=== PATIENT | female | born 1955 | race Caucasian/White ===

== ENCOUNTER 2017-10-26 22:26 | Observation (INO) | payer SELFPAY ==
--- NOTE | 2017-10-26 22:38 | EDPHY ---
H & P Time Seen by Provider: 10/26/17 22:38 HPI/ROS: HPI CHIEF COMPLAINT: Nausea, vomiting, headache HISTORY OF PRESENT ILLNESS: Patient very pleasant 62-year-old female she is visiting from [place] as her son is graduating, she states around 11:00 a.m. Or close to 12 hr ago she developed nausea with vomiting. She states been vomiting most of the day. No diarrhea. Denies any chest pain or shortness of breath. However she reports that approximately 2 hr ago she got a worsening headache. She drove herself here to the emergency room. Upon arrival to the emergency room she is noted to be diaphoretic, hypertensive , and nauseous with active vomiting. Her main complaint is nausea vomiting. She reports to me that she also has headache is global. Started 2 hr ago. She does not remember for was thunderclap. She does not really describe it. She states her whole head hurts. Past Medical History: Hypertension, diabetes, thyroid disease, obesity Past Surgical History: No recent surgery Social History: History of tobacco use. Does not smoke currently. Denies illicit drugs. Denies alcohol. Lives in [place] here for [facility] graduation. Family History: Noncontributory ROS REVIEW OF SYSTEMS: A comprehensive 10 point review of systems is otherwise negative aside from elements mentioned in the history of present illness. Exam Constitutional diaphoretic, actively vomiting, somewhat distressed, triage nursing summary reviewed, vital signs reviewed, awake/alert. Hypertensive. Eyes normal conjunctivae and sclera, EOMI, PERRLA. Pupils both equal reactive to light. HENT normal inspection, atraumatic, moist mucus membranes, no epistaxis, neck supple/ no meningismus, no raccoon eyes. Respiratory tachypneic, clear to auscultation bilaterally, normal breath sounds , no respiratory distress, no wheezing. Cardiovascular tachycardic, regular rhythm, no murmur, no edema, distal pulses normal. Gastrointestinal soft, non-tender, no rebound, no guarding, normal bowel sounds, no distension, no pulsatile mass. Genitourinary no CVA tenderness. Musculoskeletal no midline vertebral tenderness, full range of motion, no calf swelling, no tenderness of extremities, no meningismus, good pulses, neurovascularly intact. Skin pink, warm, & dry, no rash, skin atraumatic. Neurologic awake, alert and oriented x 3, AAOx3, moves all 4 extremities equally, motor intact, sensory intact, CN II-XII intact, normal cerebellar, normal vision, normal speech. Psychiatric normal mood/affect. Heme/Lymph/Immune no lymphadenopathy. Differential Diagnosis: Includes but is not limited to in a particular order acute IN, aortic dissection, intracranial bleed, stroke, subarachnoid hemorrhage , DKA, dehydration, electrolyte disturbance, altitude illness, infection, sepsis , hypertensive urgency, hypertensive emergency Medical Decision Making: Plan for this patient she is noted to be diaphoretic and somewhat distressed, will medicate her with 1 mg of Dilaudid for acute pain control, 4 mg IV Phenergan for nausea, obtain EKG in full cardiac rehabilitation specialist, rule out acute coronary syndrome, CT scan head without contrast rule out intracranial bleed. Her neurological exam is noted to be normal here however she is diaphoretic nauseous and vomiting complaining of a global headache. Patient noted be very hypertensive here diaphoretic. Will re-evaluate her blood pressure after pain and nausea control. Re-evaluation: EKG interpretation by me on record in [employer] system. Impression time of EKG 2247, this is sinus rhythm rate of [address] elevation. No significant ST depression. No significant T-wave abnormalities. Prolonged QT interval 412. 2259: Patient here in the emergency room diaphoretic nauseous actively vomiting complaining of a headache. Vitals are concerning. Will be very aggressive with her obtain EKG cardiac rehabilitation specialist, troponin, CT scan head without contrast rule out bleed. Will an IN. Re-evaluate. CT scan head without contrast negative for acute bleed. Please see full dictation for details of the CT head. Called to me by Dr. Kenneth Qureshi. 1205: Patient feeling better after IV fluids, IV Phenergan and IV Dilaudid. Patient no acute distress. She is feeling better but still complains of a headache. She seems anxious. I have ordered her 1 mg IV Ativan. Will repeat her EKG. Additionally due to the nausea vomiting and some lower abdominal pain will proceed with CT scan abdomen pelvis with IV contrast. EKG interpretation by me on record in [facility] system. Impression time of EKG this is a repeat EKG 09/20/1999, sinus rhythm rate of [address] elevation no ST depression or significant T-wave abnormalities. 1258: Patient re-evaluated. She is feeling much better after IV Ativan 1 mg. ED x-ray chest one view: Pulmonary nodule present. Please see full dictation. CT scan abdomen pelvis with IV contrast does not show any acute inflammatory process however there is a left distal UVJ stone. 5 x 7 mm. Patient states she has already aware of this stone. Additionally there is a large left adrenal gland. Diverticulosis. Lumbar spinal degeneration. But otherwise no acute inflammatory process. Called to me by Dr. Reeves. 0110: Blood pressure much improved after Ativan 130s over 80s. 0110: I did re-evaluate the patient she is resting, feels much better after IV Ativan. Her CT scan does show L distal left UVJ stone. She did complain of some pain on that side. I question if she was passing the stone causing severe nausea and vomiting. Which was then increasing her blood pressure and giving her headache. Her pain is well controlled now she is much improved in terms of symptoms. Her nausea vomiting is under control. The left lower abdominal pain is improved. Plan will be for admission to the hospital given her presentation of severe hypertension, diaphoresis, and vomiting. There is no evidence she is having intracranial bleed or IN. Source: Patient Constitutional: Initial Vital Signs Temperature (C) 36.3 C 10/26/17 22:30 Heart Rate 100 10/26/17 22:30 Respiratory Rate 30 H 10/26/17 22:30 Blood Pressure 196/140 H 10/26/17 22:30 O2 Sat (%) 100 10/26/17 22:30 O2 Delivery Mode Room Air Allergies/Adverse Reactions: No Known Allergies Allergy (Unverified 10/26/17 22:39) Home Medications: Medication Instructions Recorded Atorvastatin Calcium [Lipitor 40 40 mg PO DAILY 10/27/17 mg (*)] Exenatide Microspheres [Bydureon 2 mg SQ FR 10/27/17 Pen] FLUoxetine HCL [Fluoxetine HCl] 40 mg PO DAILY 10/27/17 [place]/Supplements -Info Only 1 ea PO DAILY 10/27/17 Levothyroxine [Synthroid 137 mcg 137 mcg PO DAILY06 10/27/17 (*)] Multivitamins [Multivitamin (*)] 1 each PO DAILY 10/27/17 [place]-3 Fatty Acids [Fish Oil 1000 1,000 mg PO DAILY 10/27/17 mg (*)] amLODIPine BESYLATE [Norvasc 2.5 2.5 mg PO DAILY 10/27/17 mg (*)] traZODone [traZODONE 50MG (*)] 50 mg PO HS PRN 10/27/17 Medical Decision Making - Data Points Laboratory Results: Laboratory Results 10/26/17 22:50 10/26/17 22:50 Medications Given: Acetaminophen (Tylenol) 650 mg PO Q4HRS PRN PRN Reason: Pain, Mild/Fever, Can Take PO Stop: 04/25/18 01:15 Last Admin: 10/27/17 16:52 Dose: 650 mg Cyclobenzaprine HCl (Flexeril) 10 mg PO HS PRN PRN Reason: Pain Stop: 04/25/18 20:59 Last Admin: 10/27/17 02:46 Dose: 10 mg Enoxaparin Sodium (Lovenox) 40 mg SC DAILY [facility] Stop: 04/25/18 08:59 Last Admin: 10/27/17 07:55 Dose: 40 mg Ceftriaxone Sodium/Dextrose (Rocephin 1 Gm (Premix)) 50 mls @ 100 mls/hr IV DAILY [facility] PRN Reason: Protocol Stop: 11/26/17 08:59 Last Admin: 10/27/17 07:55 Dose: 50 mls Sodium Chloride (Ns) 1,000 mls @ 100 mls/hr IV CONT [facility] Stop: 04/25/18 13:59 Last Admin: 10/28/17 00:05 Dose: 1,000 mls Insulin Human Lispro (Humalog Lispro) 0 unit SC TIDMEAL [facility] PRN Reason: Protocol Stop: 04/25/18 07:59 Last Admin: 10/27/17 18:25 Dose: Not Given Ketorolac Tromethamine (Toradol) 15 mg IVP Q6HRS [facility] Stop: 11/01/17 11:59 Last Admin: 10/28/17 00:05 Dose: 15 mg Ondansetron HCl (Zofran) 4 mg IVP Q4HRS PRN PRN Reason: Nausea/Vomiting, Can't Take PO Stop: 04/25/18 01:15 Last Admin: 10/27/17 16:52 Dose: 4 mg Ondansetron HCl (Zofran Odt) 4 mg PO Q4HRS PRN PRN Reason: Nausea/Vomiting, Use 1st Stop: 04/25/18 01:15 Last Admin: 10/27/17 06:49 Dose: 4 mg Oxycodone HCl (Oxycodone Ir) 5 - 10 mg PO Q4HRS PRN PRN Reason: Pain, Severe Able to Take PO Stop: 11/06/17 02:19 Last Admin: 10/28/17 00:06 Dose: 10 mg Promethazine HCl (Phenergan) 6.25 mg IVP Q6HRS PRN PRN Reason: Nausea/Vomiting, Can't Take PO Stop: 04/25/18 01:21 Last Admin: 10/28/17 01:10 Dose: 6.25 mg Discontinued Medications Hydromorphone HCl (Dilaudid) 1 mg IVP EDNOW ONE Stop: 10/26/17 22:45 Last Admin: 10/26/17 23:01 Dose: 1 mg Sodium Chloride (Ns) 1,000 mls @ 0 mls/hr IV EDNOW ONE; Wide Open PRN Reason: Protocol Stop: 10/26/17 22:45 Last Admin: 10/26/17 23:01 Dose: 1,000 mls Sodium Chloride (Ns) 1,000 mls @ 0 mls/hr IV ONCE ONE PRN Reason: Wide Open Stop: 10/27/17 01:11 Last Admin: 10/27/17 02:13 Dose: Not Given Ceftriaxone Sodium/Dextrose (Rocephin 1 Gm (Premix)) 50 mls @ 100 mls/hr IV EDNOW ONE PRN Reason: Protocol Stop: 10/27/17 02:18 Last Admin: 10/27/17 01:53 Dose: 50 mls Ketorolac Tromethamine (Toradol) 30 mg IVP ONCE ONE Stop: 10/27/17 09:41 Last Admin: 10/27/17 10:10 Dose: 30 mg Lorazepam (Ativan Injection) 1 mg IVP EDNOW ONE Stop: 10/27/17 00:05 Last Admin: 10/27/17 00:17 Dose: 1 mg Ondansetron HCl (Zofran) 4 mg IVP EDNOW ONE Stop: 10/26/17 22:45 Last Admin: 10/27/17 02:12 Dose: Not Given Promethazine HCl (Phenergan) 6.25 mg IVP ONCE ONE Stop: 10/26/17 22:51 Last Admin: 10/26/17 23:01 Dose: 6.25 mg Departure - Departure Disposition: [facility] Inpatient Acute Clinical Impression: Kidney stone on left side, Pulmonary nodule, Adrenal mass Hypertension Qualifiers: Hypertension type: unspecified Qualified Code(s): I10 - Essential (primary) hypertension Vomiting Qualifiers: Vomiting type: unspecified Vomiting Intractability: non-intractable Nausea presence: with nausea Qualified Code(s): R11.2 - Nausea with vomiting, unspecified UTI (urinary tract infection) Qualifiers: Urinary tract infection type: acute cystitis Hematuria presence: with hematuria Qualified Code(s): N30.01 - Acute cystitis with hematuria Condition: Fair
[2017-10-26] MEDS ORDERED: HYDROmorphONE/DILAUDID 2 MG/ML INJ IVP ONE (22:44)
[2017-10-26] MEDS ORDERED: NS 1,000 ML IV ONE (22:44)
[2017-10-26] MEDS ORDERED: ONDANSETRON 4 MG/2 ML VIAL IVP ONE (22:44)
--- NOTE | 2017-10-26 22:48 | CPEKG ---
Heart Rate: 95 RR Interval: 632 P-R Interval: 140 QRSD Interval: 92 QT Interval: 412 QTC Interval: 518 P [place]: 56 QRS [place]: 40 T Wave [place]: 41 EKG Severity - ABNORMAL ECG - EKG Impression: SINUS RHYTHM EKG Impression: PROLONGED QT INTERVAL Electronically Signed By: Edward Horton 27-Oct-2017 06:14:28
[2017-10-26] MEDS ORDERED: PROMETHAZINE HCL 25 MG/ML INJ IVP ONE (22:50)
[2017-10-26 23:00] LABS: PLATELET COUNT 427 10^3/uL (150-400)
[2017-10-26 23:10] LABS: INR 0.87 (0.83-1.16); PROTIME(PATIENT) 12.1 SEC (12.0-15.0)
[2017-10-26 23:12] LABS: CREATINE KINASE 80 IU/L (0-156)
[2017-10-27] MEDS ORDERED: LORazepam 2 MG/ML INJ IVP ONE (00:04)
[2017-10-27] MEDS ORDERED: IOPAMIDOL (ISOVUE-300) 100 ML BTL ONE (00:16)
--- NOTE | 2017-10-27 00:48 | CPEKG ---
Heart Rate: 76 RR Interval: 789 P-R Interval: 140 QRSD Interval: 90 QT Interval: 444 QTC Interval: 500 P [place]: 14 QRS [place]: 18 T Wave [place]: 38 EKG Severity - BORDERLINE ECG - EKG Impression: SINUS RHYTHM EKG Impression: PROBABLE LATERAL INFARCT, OLD EKG Impression: BORDERLINE PROLONGED QT INTERVAL Electronically Signed By: Edward Horton 27-Oct-2017 06:14:28
[2017-10-27] MEDS ORDERED: NS 1,000 ML IV ONE (01:10)
[2017-10-27] MEDS ORDERED: ACETAMINOPHEN 325 MG TAB PO PRN (01:16)
--- NOTE | 2017-10-27 01:27 | PDGENHP ---
History and Physical - Chief Complaint Nausea - History of Present Illness 62 yo F w/ T2DM and HLD p/w nausea. She was having brunch with family when she became very nauseous and diaphoretic. She also is having some LLQ pain. Upon arrival in the ED her BP was elevated and she was in visible distress with frequent vomiting. Extensive work-up, including CT of head and abdomen were relatively unremarkable. Ischemia work-up as negative. CT abdomen did show kidney stone, which may have led to nausea, vomiting, pain, and dehydration. Her symptoms are much improved after IVF in the ED. She denies any symptoms c/w infection, although she says he has had UTI's in the past where she felt similarly. History Information - Allergies/Home Medication List Allergies/Adverse Reactions: No Known Allergies Allergy (Unverified 10/26/17 22:39) Home Medications: Unobtainable 10/26/17 [Last Taken Unknown] I have personally reviewed and updated: family history, medical history - Past Medical History diabetes type 2, hyperlipidemia Additional medical history: Hypothyroid - Surgical History Additional surgical history: x2 - Family History Positive for: diabetes type II, CAD - Social History Smoking Status: Current some day smoker Review of Systems Review of Systems: ROS: 10pt was reviewed & negative except for what was stated in HPI & below Physical Exam Physical Exam: Temp Pulse Resp BP Pulse Ox 36.3 C 77 16 131/76 H 92 10/26/17 22:30 10/27/17 00:00 10/27/17 00:00 10/27/17 00:00 10/27/17 00:00 Constitutional: no apparent distress, not in pain Eyes: PERRL, EOMI Ears, Nose, Mouth, Throat: moist mucous membranes, no oral mucosal ulcers Cardiovascular: regular rate and rhythym, no murmur, rub, or gallop Respiratory: no respiratory distress, no rales or rhonchi Gastrointestinal: normoactive bowel sounds, tenderness (LLQ), No guarding, No rebound, No distension Skin: warm, normal color Musculoskeletal: full muscle strength, no muscle tenderness Neurologic: AAOx3, CN II-XII Intact Psychiatric: interacting appropriately, not anxious Lab Data & Imaging Review 10/26/17 22:50 10/26/17 22:50 WBC 10.93 10^3/uL (3.80-9.50) H 10/26/17 22:50 RBC 5.14 10^6/uL (4.18-5.33) 10/26/17 22:50 Hgb 15.0 g/dL (12.6-16.3) 10/26/17 22:50 POC Hgb 15.6 gm/dL (12.6-16.3) 10/26/17 22:55 Hct 45.0 % (38.0-47.0) 10/26/17 22:50 POC Hct 46 % (38-47) 10/26/17 22:55 MCV 87.5 fL (81.5-99.8) 10/26/17 22:50 MCH 29.2 pg (27.9-34.1) 10/26/17 22:50 MCHC 33.3 g/dL (32.4-36.7) 10/26/17 22:50 RDW 13.1 % (11.5-15.2) 10/26/17 22:50 Plt Count 427 10^3/uL (150-400) H 10/26/17 22:50 MPV 10.5 fL (8.7-11.7) 10/26/17 22:50 Neut % (Auto) 84.1 % (39.3-74.2) H 10/26/17 22:50 Lymph % (Auto) 12.7 % (15.0-45.0) L 10/26/17 22:50 [place] % (Auto) 2.0 % (4.5-13.0) L 10/26/17 22:50 Eos % (Auto) 0.4 % (0.6-7.6) L 10/26/17 22:50 Baso % (Auto) 0.5 % (0.3-1.7) 10/26/17 22:50 Nucleat RBC Rel Count 0.0 % (0.0-0.2) 10/26/17 22:50 Absolute Neuts (auto) 9.20 10^3/uL (1.70-6.50) H 10/26/17 22:50 Absolute Lymphs (auto) 1.39 10^3/uL (1.00-3.00) 10/26/17 22:50 Absolute Monos (auto) 0.22 10^3/uL (0.30-0.80) L 10/26/17 22:50 Absolute Eos (auto) 0.04 10^3/uL (0.03-0.40) 10/26/17 22:50 Absolute Basos (auto) 0.05 10^3/uL (0.02-0.10) 10/26/17 22:50 Absolute Nucleated RBC 0.00 10^3/uL (0-0.01) 10/26/17 22:50 Immature Gran % 0.3 % (0.0-1.1) 10/26/17 22:50 Immature Gran # 0.03 10^3/uL (0.00-0.10) 10/26/17 22:50 PT 12.1 SEC (12.0-15.0) 10/26/17 22:50 INR 0.87 (0.83-1.16) 10/26/17 22:50 APTT 26.7 SEC (23.0-38.0) 10/26/17 22:50 VBG Lactic Acid 1.9 mmol/L (0.7-2.1) D 10/27/17 00:30 POC Sodium 142 mEq/L (135-145) 10/26/17 22:55 Sodium 146 mEq/L (135-145) H 10/26/17 22:50 POC Potassium 4.2 mEq/L (3.3-5.0) 10/26/17 22:55 Potassium 4.5 mEq/L (3.5-5.2) 10/26/17 22:50 POC Chloride 107 mEq/L (97-110) 10/26/17 22:55 Chloride 108 mEq/L (97-110) 10/26/17 22:50 Carbon Dioxide 19 mEq/l (22-31) L 10/26/17 22:50 Anion Gap 19 mEq/L (8-16) H 10/26/17 22:50 POC BUN 22 mg/dL (7-23) 10/26/17 22:55 BUN 18 mg/dL (7-23) 10/26/17 22:50 Creatinine 0.8 mg/dL (0.6-1.0) 10/26/17 22:50 POC Creatinine 0.9 mg/dL (0.6-1.0) 10/26/17 22:55 Estimated GFR > 60 10/26/17 22:50 Glucose 231 mg/dL (70-100) H 10/26/17 22:50 POC Glucose 248 mg/dL (70-100) H 10/26/17 22:55 Calcium 10.8 mg/dL (8.5-10.4) H 10/26/17 22:50 Phosphorus 1.6 mg/dL (2.5-4.5) L 10/26/17 22:50 Magnesium 1.9 mg/dL (1.6-2.3) 10/26/17 22:50 Total Bilirubin 0.8 mg/dL (0.1-1.4) 10/26/17 22:50 Conjugated Bilirubin 0.5 mg/dL (0.0-0.5) 10/26/17 22:50 Unconjugated Bilirubin 0.3 mg/dL (0.0-1.1) 10/26/17 22:50 AST 33 IU/L (14-46) 10/26/17 22:50 ALT 43 IU/L (9-52) 10/26/17 22:50 Alkaline Phosphatase 88 IU/L (38-126) 10/26/17 22:50 Creatine Kinase 80 IU/L (0-156) 10/26/17 22:50 CK-MB (CK-2) Fraction 1.29 ng/mL (0.00-3.19) 10/26/17 22:50 Troponin I < 0.012 ng/mL (0.000-0.034) 10/26/17 22:50 NT-Pro-B Natriuret Pep 431 pg/mL (0-125) H 10/26/17 22:50 Total Protein 7.6 g/dL (6.3-8.2) 10/26/17 22:50 Albumin 4.6 g/dL (3.5-5.0) 10/26/17 22:50 Lipase 127 IU/L (23-300) 10/26/17 22:50 Imaging Review: Imaging Impressions Chest X-Ray 10/26/17 22:44 Impression: 1. No acute abnormality. 2. There is a 6.4 mm noncalcified nodule in the left midlung. Follow-up CT reevaluation in 6 months is suggested, unless there are prior outside remote studies demonstrating chronic stability. Findings and recommendations were discussed with Edward Horton MD at 0:08, on 10/27/2017. Head CT 10/26/17 22:44 Impression: 1. There is no acute intracranial abnormality identified on this unenhanced CT evaluation. 2. Nonspecific, relatively symmetrical chronic periventricular white matter changes. Please see the above discussion for differential considerations. 3. Empty sella turcica. If there is further clinical concern regarding the patient's symptoms, MR imaging (with and without contrast) is suggested, if not otherwise contraindicated. Findings were discussed with Edward Horton MD at 23:33, on 10/26/2017. Visualized and Interpreted Chest x-ray results: Yes Chest X-Ray results: no infiltrate Visualized and Interpreted EKG results: Yes EKG Interpretation: Positive for: normal sinsus rhythm Assessment & Plan Assessment: 62 yo F w/ NIDDM and HLD presents with nausea, vomiting, possibly 2/2 kidney stone. Plan: 1. Nausea, vomiting - Possibly triggered by kidney stone seen on imaging. She does have L adrenal thickening but this does not seem consistent with pheochromocytoma. Other work-up (CXR, ECG, troponin, CTH) unrevealing of other abnormality. - Admit for observation - S/p IVF - Treat supportively with anti-emetics 2. NIDDM - Takes exenatide weekly for this at home. - SSI while inpatient 3. L adrenal thickening - Will need outpatient follow-up. If she has episodic HTN while inpatient, may require further acute work-up but will defer for now. 4. Lung nodule - Will need outpatient follow-up. 5. Hypothyroid - On LTX Diet - Regular Code - Full Ppx - LMWH Dispo - Admit under observation status
[2017-10-27] MEDS: ONDANSETRON 4 MG/2 ML VIAL IVP PRN ×3 (02:45→16:52)
[2017-10-27] MEDS: CYCLOBENZAPRINE 10 MG TAB PO PRN (02:46)
[2017-10-27] MEDS: oxyCODONE IR 5 MG TAB PO PRN ×5 (02:46→19:54)
[2017-10-27 05:48] LABS: PLATELET COUNT 321 10^3/uL (150-400)
[2017-10-27] MEDS: ONDANSETRON DISINTEGRATING 4 MG TAB PO PRN (06:49)
--- NOTE | 2017-10-27 08:00 | SOAPPROG ---
[facility] Progress Note Assessment/Plan: Assessment: Adrenal mass Acute need assess as outpatient, normal electrolytes, remainder can be done in [place] Diverticulosis Acute may be contributing to pain, discussed and need for assessment upon returning home Hypertension Acute Pulmonary nodule Acute Right nephrolithiasis Acute small asymptomatic and non-obstructing UTI (urinary tract infection) Acute culture pending Vomiting Acute Left ureterolithiasis Acute doubt acute pain at this time, consider DC and following up with PCP / Urology in [place] Plan: as outlined, discussed with Cristina Askew [employer] [employer] 10/27/17 07:57 Subjective: pain minimal and now localized to left lower quadrant, seems related to sigmoid colon on exam, no rebound, guarding or flank pain Objective: Vital Signs Temp Pulse Resp BP Pulse Ox 36.8 C 80 16 117/69 91 L 10/27/17 07:51 10/27/17 07:51 10/27/17 07:51 10/27/17 07:51 10/27/17 07:51 Laboratory Results 10/27/17 05:30 10/27/17 05:30 PT 12.1 SEC (12.0-15.0) 10/26/17 22:50 INR 0.87 (0.83-1.16) 10/26/17 22:50 Physical Exam - Physical Exam General Appearance: alert Neck: supple Respiratory: No respiratory distress Cardiac/Chest: regular rate, rhythm Abdomen: soft, other (tender over sigmoid colon on palpation) Back: No CVA tenderness Skin: warm/dry, No cyanosis, No diaphoresis, No pallor Extremities: non-tender Neuro/Psych: alert, oriented x 3 ICD10 Worksheet Patient Problems: Problems Problem Status Onset Adrenal mass Acute Diverticulosis Acute Hypertension Acute Kidney stone on left side Acute Pulmonary nodule Acute Right nephrolithiasis Acute UTI (urinary tract infection) Acute Vomiting Acute - ICD10 Problem Qualifiers (1) Diverticulosis (2) Right nephrolithiasis
[2017-10-27] MEDS: INSULIN LISPRO 100 UNIT/ML SC SCH ×3 (08:06→18:25)
--- NOTE | 2017-10-27 08:34 | HOSPPROG ---
Hospitalist Progress Note Assessment/Plan: Nicole Corley is a 62-year-old female with type 2 diabetes who presented the emergency room with nausea and left lower quadrant pain. Her blood pressure was elevated and she was having frequent vomiting. CT of the head was negative. CT of the abdomen showed a kidney stone and also a thickened sigmoid colon. I reviewed her care with Dr. Reynoso. Today is my 1st encounter with the patient * nausea and vomiting -possibly secondary from a kidney stone seen on imaging * possible urinary tract infection with hematuria -started on antibiotics * left distal ureteral stone that is nonobstructing -patient has no hydro nephrosis * thickened sigmoid colon with diverticulosis -pain is more colicky in nature, 'comes and goes' -no fever, no elevation in wbc * left adrenal thickening -patient from the [place] area should get further outpatient workup * lung nodule -further followup in the outpatient setting -hx of smoking, quit 6 months ago * non insulin dependent diabetes -sliding scale *Plan: monitor her this morning to see how she does, trial of Toradol Subjective: Nicole is c/o sudden onset of pain in left very lower quadrant area of abdomen. Objective: Vital Signs Temp Pulse Resp BP Pulse Ox 36.8 C 80 16 117/69 91 L 10/27/17 07:51 10/27/17 07:51 10/27/17 07:51 10/27/17 07:51 10/27/17 07:51 Laboratory Results 10/27/17 05:30 10/27/17 05:30 PT 12.1 SEC (12.0-15.0) 10/26/17 22:50 INR 0.87 (0.83-1.16) 10/26/17 22:50 - Physical Exam Constitutional: appears nourished, No not in pain Eyes: PERRL Ears, Nose, Mouth, Throat: hearing normal Cardiovascular: regular rate and rhythym Respiratory: no respiratory distress Skin: warm Musculoskeletal: full muscle strength Neurologic: AAOx3 Psychiatric: interacting appropriately ICD10 Worksheet Patient Problems: Problems Problem Status Onset Adrenal mass Acute Diverticulosis Acute Hypertension Acute Kidney stone on left side Acute Pulmonary nodule Acute Right nephrolithiasis Acute UTI (urinary tract infection) Acute Vomiting Acute
[2017-10-27] MEDS: PROMETHAZINE HCL 25 MG/ML INJ IVP PRN ×2 (08:52→19:55)
[2017-10-27] MEDS ORDERED: ENOXAPARIN 40 MG/0.4 ML SYR SC SCH (09:00)
[2017-10-27] MEDS ORDERED: KETOROLAC 30 MG/1 ML SDV IVP ONE (09:40)
--- NOTE | 2017-10-27 10:58 | ASMTCMCOM ---
CM Note CM Note Notes: Patient here visiting from [place] for her son's [employer] graduation. Admitted for nausea, possible triggered by kidney stone. She is being managed for pain; her other issues (lung nodule, adrenal mass) can be addressed as an outpatient back in [place]. No Case Management needs identified, but we are available if any arise. Date Signed: 10/27/2017 10:57 AM Electronically Signed By:Abbi Simmons RN
[2017-10-27] MEDS: KETOROLAC 15 MG/1 ML SDV IVP SCH ×2 (12:15→18:28)
[2017-10-27] MEDS ORDERED: NS 1,000 ML IV SCH (14:00)
[2017-10-28] MEDS: KETOROLAC 15 MG/1 ML SDV IVP SCH ×4 (00:05→17:53)
[2017-10-28] MEDS: oxyCODONE IR 5 MG TAB PO PRN ×5 (00:06→22:05)
[2017-10-28] MEDS: PROMETHAZINE HCL 25 MG/ML INJ IVP PRN ×3 (01:10→17:56)
[2017-10-28] MEDS: LEVOTHYROXINE 137 MCG TAB PO SCH (05:00)
[2017-10-28] MEDS: FLUoxetine 20 MG CAP PO SCH (08:40)
[2017-10-28] MEDS: INSULIN LISPRO 100 UNIT/ML SC SCH ×3 (08:46→17:52)
[2017-10-28] MEDS ORDERED: NON-FORMULARY NEW DRUG (Fluoxetine Hcl [Fluoxetine Hcl] 40 MG) PO SCH (09:00)
--- NOTE | 2017-10-28 09:07 | HOSPPROG ---
Hospitalist Progress Note Assessment/Plan: Nicole Corley is a 62-year-old female with type 2 diabetes who presented the emergency room with nausea and left lower quadrant pain. Her blood pressure was elevated and she was having frequent vomiting. CT of the head was negative. CT of the abdomen showed a kidney stone and also a thickened sigmoid colon. I reviewed her care with Dr. Reynoso. * nausea and vomiting -possibly secondary from a kidney stone seen on imaging -none today * possible urinary tract infection with hematuria -started on antibiotics * left distal ureteral stone that is nonobstructing -patient has no hydro nephrosis -cont to c/o colicky pain -to get a cystoscopy today * thickened sigmoid colon with diverticulosis -pain is more colicky in nature, 'comes and goes' -no fever, no elevation in wbc * left adrenal thickening -patient from the [place] area should get further outpatient workup * lung nodule -further followup in the outpatient setting -hx of smoking, quit 6 months ago * non insulin dependent diabetes -sliding scale *Plan: to get a cystoscopy today and will need f/u with her doctor in [place]. Hopefully, can be dc home tomorrow. She will need f/u with her PCP in regards to the multiple findings above and evaluation of right ureteral ston. Subjective: Nicole is concerned that the pain is still in her left lower abdomen area. Worried about driving back to [place]. Objective: Vital Signs Temp Pulse Resp BP Pulse Ox 36.9 C 66 16 134/84 H 93 10/28/17 07:35 10/28/17 07:35 10/28/17 07:35 10/28/17 07:35 10/28/17 07:35 Laboratory Results 10/27/17 05:30 10/27/17 05:30 10/27/17 10/28/17 10/29/17 05:59 05:59 05:59 Intake Total 2000 Output Total 650 Balance 1350 PT 12.1 SEC (12.0-15.0) 10/26/17 22:50 INR 0.87 (0.83-1.16) 10/26/17 22:50 - Physical Exam Constitutional: uncomfortable, No not in pain Eyes: PERRL Ears, Nose, Mouth, Throat: hearing normal Cardiovascular: regular rate and rhythym Respiratory: no respiratory distress Gastrointestinal: normoactive bowel sounds, tenderness (left lower abdominal area) Skin: warm Musculoskeletal: full muscle strength Neurologic: AAOx3 Psychiatric: interacting appropriately, anxious ICD10 Worksheet Patient Problems: Problems Problem Status Onset Adrenal mass Acute Diverticulosis Acute Hypertension Acute Kidney stone on left side Acute Pulmonary nodule Acute Right nephrolithiasis Acute UTI (urinary tract infection) Acute Vomiting Acute
[2017-10-28] MEDS ORDERED: IOPAMIDOL (ISOVUE-M 300) 15 ML VIAL ONE (11:51)
[2017-10-28] MEDS ORDERED: LIDOCAINE 2% JELLY 20 ML (UROJECT) ONE ×2 (11:51→14:04)
[2017-10-28] MEDS: ONDANSETRON DISINTEGRATING 4 MG TAB PO PRN (11:52)
[2017-10-28] MEDS: ONDANSETRON 4 MG/2 ML VIAL IVP PRN ×2 (12:03→20:58)
[2017-10-28] MEDS ORDERED: LR 1,000 ML IV ONE (13:26)
[2017-10-28] MEDS ORDERED: MIDAZOLAM 2 MG/2 ML VIAL IVP ONE (14:31)
--- NOTE | 2017-10-28 14:31 | PDANEPAE ---
ANE History of Present Illness kidney stone here for ureteroscopy ANE Past Medical History - Cardiovascular History Hx Hypertension: No Hx Arrhythmias: No Hx Chest Pain: No - Pulmonary History Hx Oxygen in Use at Home: No Hx Sleep Apnea: Yes Sleep Apnea Screening Result - Last Documented: Positive - Endocrine History Hx Diabetes: Yes ANE Review of Systems Review of Systems: - Exercise capacity Exercise capacity: >=4 METS ANE Patient History - Allergies Allergies/Adverse Reactions: No Known Allergies Allergy (Unverified 10/26/17 22:39) - Home Medications Home Medications: Atorvastatin Calcium [Lipitor 40 mg (*)] 40 mg PO DAILY 10/27/17 [Last Taken ] Exenatide Microspheres [Bydureon Pen] 2 mg SQ FR 10/27/17 [Last Taken 10/24/17] FLUoxetine HCL [Fluoxetine HCl] 40 mg PO DAILY 10/27/17 [Last Taken 10/26/17] Herbals/Supplements -Info Only 1 ea PO DAILY 10/27/17 [Last Taken Unknown] Levothyroxine [Synthroid 137 mcg (*)] 137 mcg PO DAILY06 10/27/17 [Last Taken ] Multivitamins [Multivitamin (*)] 1 each PO DAILY 10/27/17 [Last Taken 10/26/17] Deep Water-3 Fatty Acids [Fish Oil 1000 mg (*)] 1,000 mg PO DAILY 10/27/17 [Last Taken 10/26/17] amLODIPine BESYLATE [Norvasc 2.5 mg (*)] 2.5 mg PO DAILY 10/27/17 [Last Taken ] traZODone [traZODONE 50MG (*)] 50 mg PO HS PRN 10/27/17 [Last Taken Unknown] - NPO status NPO Status: no food or drink >8 hours NPO Since - Liquids (Date): 10/27/17 NPO Since - Liquids (Time): 23:55 NPO Since - Solids (Date): 10/27/17 NPO Since - Solids (Time): 23:55 - Anes Hx Anes Hx: post operative nausea - Smoking Hx Smoking Status: Former smoker - Alcohol Use Alcohol Use: Rarely - Family Anes Hx Family Anes Hx: none ANE Labs/Vital Signs - Labs Result Diagrams: 10/27/17 05:30 10/27/17 05:30 - Vital Signs Blood Pressure: 141/91 Heart Rate: 72 Respiratory Rate: 16 O2 Sat (%): 98 Height: 165.1 cm Weight: 90.718 kg ANE Physical Exam - Airway Neck exam: FROM Mallampati Score: Class 2 Mouth exam: normal dental/mouth exam - Pulmonary Pulmonary: no respiratory distress, clear to auscultation - Cardiovascular Cardiovascular: regular rate and rhythym, no murmur, rub, or gallop - ASA Status ASA Status: II ANE Anesthesia Plan Anesthesia Plan: GA w LMA
[2017-10-28] MEDS ORDERED: fentaNYL 100 MCG/2 ML INJ ONE (14:41)
[2017-10-28] MEDS ORDERED: LIDOCAINE 2% 100 MG/5 ML SYR ONE (14:41)
[2017-10-28] MEDS ORDERED: ONDANSETRON 4 MG/2 ML VIAL ONE (14:41)
[2017-10-28] MEDS ORDERED: DEXAMETHASONE 4 MG/ML VIAL ONE (14:41)
[2017-10-28] MEDS ORDERED: PROPOFOL 200 MG/20 ML VIAL ONE (14:42)
[2017-10-28] MEDS ORDERED: epHEDrine SULFATE 10 MG/ML SYR ONE (15:05)
--- NOTE | 2017-10-28 15:24 | POSTOPPROG ---
Post Op Note Date of Operation: 10/28/17 Surgeon: Lopez Reynoso Anesthesia: LMA Pre-op Diagnosis: left ureterolithiasis Procedure: ureteroscopy stone remova Inf/Abcess present in the surg proc area at time of surgery?: No EBL: Minimal Drains: Other (none) Specimen(s): stone sent, dictated note
[2017-10-28] MEDS ORDERED: PROMETHAZINE HCL 25 MG/ML INJ IVP PRN (15:51)
[2017-10-28] MEDS ORDERED: LABETALOL HCL 5 MG/ML 20 ML MDV IVP PRN (15:51)
[2017-10-28] MEDS ORDERED: ONDANSETRON 4 MG/2 ML VIAL IVP PRN (15:51)
[2017-10-28] MEDS ORDERED: HYDROCODONE/APAP 5/325 TAB PO PRN (15:51)
[2017-10-28] MEDS ORDERED: NALOXONE HCL 0.4 MG/ML INJ IVP PRN (15:51)
[2017-10-28] MEDS ORDERED: MEPERIDINE 25 MG/0.5 ML AMP IVP PRN (15:51)
[2017-10-28] MEDS ORDERED: ACETAMINOPHEN 500 MG TAB PO PRN (15:51)
[2017-10-28] MEDS ORDERED: ALBUTEROL 3 ML DEYVIAL IH PRN (15:51)
[2017-10-28] MEDS ORDERED: fentaNYL 100 MCG/2 ML INJ IVP PRN (15:51)
[2017-10-28] MEDS ORDERED: HYDROmorphONE/DILAUDID 2 MG/ML INJ IVP PRN (15:51)
[2017-10-28] MEDS ORDERED: DEXAMETHASONE 4 MG/ML VIAL IVP PRN (15:51)
--- NOTE | 2017-10-28 15:53 | POSTANESTH ---
Post Anesthetic Evaluation Cardiovascular Status: Normal, Stable, Similar to Pre-Op Cond Respiratory Status: Normal, Stable, Similar to Pre-op Cond. Level of Consciousness/Mental Status: Can Participate in Eval, Mildly Sleepy, Arousable Pain Control: Adequate, Prn Tx Ordered Nausea/Vomiting Control: Adequate, Prn Tx Ordered Complications Possibly Related to Anesthesia: None Noted
--- NOTE | 2017-10-28 16:05 | GOP ---
[f rep st] OPERATIVE REPORT DATE OF OPERATION: SURGEON: Lopez Reynoso MD PREOPERATIVE DIAGNOSIS: Left ureteral calculus. POSTOPERATIVE DIAGNOSIS: Left ureteral calculus. PROCEDURE PERFORMED: Cystoscopy, retrograde ureteral pyelogram interpretation, ureteroscopy, stone f ragmentation and extraction of the stone. FINDINGS: DESCRIPTION OF PROCEDURE: The lady underwent general anesthesia, prepped and draped in normal steril e fashion in dorsal lithotomy position. The urethra was stenotic and was dilated. After dilation, s he had some blood per urethra that eventually stopped by natural condition. The cystoscope was passe d. She had no tumor stones, foreign bodies, or diverticula in the bladder. She had clear reflux fro m the left ureter but cannulation revealed the distal ureteral calculus. I was able to do a semi-rig id ureteroscopy, which I went up into the stone and with the laser I used 189 joules of power to frag ment the stone into multiple pieces, extracted those with a stone basket. Visualized the ureter afte rwards. There was no trauma or perforation of the ureter identified. At that point, because she chante es out of town, I elected to not place a stent, but I did place 6 cc of xylocaine gel in the ureter a nd with efflux tried to provide local anesthesia to prevent spasm. Bladder was emptied and stone sen t for analysis. She will be discharged home and I request that she have follow up with her urologist in [place]. She does have a left adrenal abnormality that needs to be assessed and diverticulosis of the colon needs to be addressed and right nephrolithiasis that needs to be addressed. /[id number]/MODL
[2017-10-28] MEDS: CYCLOBENZAPRINE 10 MG TAB PO PRN (18:03)
[2017-10-29] MEDS: KETOROLAC 15 MG/1 ML SDV IVP SCH ×3 (00:03→11:14)
[2017-10-29] MEDS: CYCLOBENZAPRINE 10 MG TAB PO PRN (00:04)
[2017-10-29] MEDS: oxyCODONE IR 5 MG TAB PO PRN ×3 (01:31→11:13)
[2017-10-29] MEDS: LEVOTHYROXINE 137 MCG TAB PO SCH (04:51)
--- NOTE | 2017-10-29 07:27 | SOAPPROG ---
[facility] Progress Note Assessment/Plan: Assessment: Adrenal mass Acute need assess as outpatient, normal electrolytes, remainder can be done in [place] Diverticulosis Acute may be contributing to pain, discussed and need for assessment upon returning home Hypertension Acute Pulmonary nodule Acute Right nephrolithiasis Acute small asymptomatic and non-obstructing UTI (urinary tract infection) Acute culture pending Vomiting Acute Left ureterolithiasis Acute stone removed 10/28/2017, no stent Plan: as outlined, consider DC 10/29/17 08:23 Subjective: doing well Objective: Vital Signs Temp Pulse Resp BP Pulse Ox 36.3 C 77 16 160/93 H 94 10/29/17 03:40 10/29/17 03:40 10/29/17 03:40 10/29/17 03:40 10/29/17 03:40 Laboratory Results 10/27/17 05:30 10/29/17 04:56 10/28/17 10/29/17 10/30/17 05:59 05:59 05:59 Intake Total 2000 1940 Output Total 650 800 Balance 1350 1140 PT 12.1 SEC (12.0-15.0) 10/26/17 22:50 INR 0.87 (0.83-1.16) 10/26/17 22:50 Physical Exam - Physical Exam General Appearance: alert Neck: supple Respiratory: No respiratory distress Cardiac/Chest: regular rate, rhythm Abdomen: soft Back: No CVA tenderness ICD10 Worksheet Patient Problems: Problems Problem Status Onset Adrenal mass Acute Diverticulosis Acute Hypertension Acute Kidney stone on left side Acute Pulmonary nodule Acute Right nephrolithiasis Acute UTI (urinary tract infection) Acute Vomiting Acute - ICD10 Problem Qualifiers (1) Diverticulosis (2) Right nephrolithiasis
[2017-10-29 07:47] VITALS: BP 122/96
[2017-10-29] MEDS: INSULIN LISPRO 100 UNIT/ML SC SCH (08:03)
--- NOTE | 2017-10-29 08:30 | HOSPPROG ---
Hospitalist Progress Note Assessment/Plan: Nicole Corley is a 62-year-old female with type 2 diabetes who presented the emergency room with nausea and left lower quadrant pain. Her blood pressure was elevated and she was having frequent vomiting. CT of the head was negative. CT of the abdomen showed a kidney stone and also a thickened sigmoid colon. I reviewed her care with Dr. Reynoso. * nausea and vomiting -possibly secondary from a kidney stone seen on imaging -none today * possible urinary tract infection with hematuria -started on antibiotics/ feeling much better * left distal ureteral stone that is nonobstructing -patient has no hydro nephrosis -s/p stone removal, no stent placed * thickened sigmoid colon with diverticulosis -pain is more colicky in nature, 'comes and goes' -no fever, no elevation in wbc * left adrenal thickening -patient from the [facility] should get further outpatient workup * lung nodule -further followup in the outpatient setting -hx of smoking, quit 6 months ago * non insulin dependent diabetes -sliding scale *Plan: dc today, she will f/u w her doctor in the [facility] Subjective: Nicole is feeling much better. Objective: Vital Signs Temp Pulse Resp BP Pulse Ox 36.7 C 73 16 122/96 H 92 10/29/17 07:46 10/29/17 07:46 10/29/17 07:46 10/29/17 07:46 10/29/17 07:46 Microbiology 10/27/17 01:30 Urine Culture - Final Urine,Clean Catch Escherichia Coli [place] Types Laboratory Results 10/27/17 05:30 10/29/17 04:56 10/28/17 10/29/17 10/30/17 05:59 05:59 05:59 Intake Total 1999 194 Output Total 650 800 Balance 1350 1140 PT 12.1 SEC (12.0-15.0) 10/26/17 22:50 INR 0.87 (0.83-1.16) 10/26/17 22:50 - Physical Exam Constitutional: no apparent distress, appears nourished, not in pain Eyes: PERRL Ears, Nose, Mouth, Throat: hearing normal Respiratory: no respiratory distress Skin: warm, normal color Musculoskeletal: full muscle strength Neurologic: AAOx3 Psychiatric: interacting appropriately ICD10 Worksheet Patient Problems: Problems Problem Status Onset Adrenal mass Acute Diverticulosis Acute Hypertension Acute Kidney stone on left side Acute Pulmonary nodule Acute Right nephrolithiasis Acute UTI (urinary tract infection) Acute Vomiting Acute
[2017-10-29] MEDS: FLUoxetine 20 MG CAP PO SCH (09:33)
--- NOTE | 2017-10-29 09:35 | GDS ---
[f rep st] DISCHARGE SUMMARY DISCHARGE DIAGNOSES: 1. Nausea and vomiting. 2. Left distal ureteral stone that is nonobstructing. 3. Urinary tract infection with associated hematuria. 4. Thickened sigmoid colon with diverticulosis. 5. Left adrenal thickening. 6. Lung nodule. 7. Noninsulin dependent diabetes. CONSULTATION: Dr. Jim Reynoso. HISTORY OF PRESENT ILLNESS: Briefly, the patient is a 62-year-old female with type 2 diabetes, presenting to the emergency room with nausea and vomiting with associated left lower quadrant pain. She had a CT of her head because of persistent vomiting, which was negative. A CT of the abdomen showed a kidney stone and also a thickened sigmoid colon. She was seen and evaluated by Dr. Reynoso with Urology on 10/28/2017. She had a cystoscopy, retrograde ureteral pyelogram, interpretation, ureteroscopy and stone fragmented and extraction of the stone. The patient felt markedly better after the procedure. She is from the [place] area. The plan is for her to follow up with her physician in [place]. HOSPITAL COURSE BY PROBLEM: 1. Nausea and vomiting have since resolved. 2. Urinary tract infection with associated hematuria. She is feeling markedly better. Will keep her on antibiotics for several more days and have her follow up with her PCP. 3. Left ureteral stone that is nonobstructing. She is status post stone removal. No stent was placed. 4. Sigmoid colon with diverticulosis. She needs to follow up with her PCP in regard to this and have this monitored. 5. Left adrenal thickening. Also recommendation followup with her PCP. 6. Lung nodule. She has a history of smoking and quit recently. Recommend that this be monitored closely in the outpatient setting. 7. Noninsulin dependent diabetes. She is placed on the sliding scale. DISCHARGE CONDITION: Stable. Blood pressure is 122/96, heart rate is 73, respiratory rate is 16, O2 sats on room air 92%, temperature 36.7 Celsius. MEDICATIONS AT DISCHARGE: Please see the EMR. DISCHARGE INSTRUCTIONS: 1. She needs to follow up with her urologist for assessment of stones on her right kidney, left adrenal mass and her sigmoid diverticulosis. 2. Her stone was sent for analysis. She needs to follow up with Dr. Reynoso in regard to this. 3. Pulmonary nodule. Needs to be monitored closely by her primary care provider. 4. Prescriptions were filled here while at the hospital. She has been instructed not to drink or drive while on the pain medication and that it causes constipation. 5. She will take copies of the imaging performed here to follow up with her PCP. Greater than 30 minutes discharging and coordinating the patient's care. /[id number]/MODL MTDD
[2017-10-29] MEDS ORDERED: D50W 25 GM/50 ML SYR IVP PRN (10:19)
--- NOTE | 2017-10-29 13:47 | ASMTCMCOM ---
CM Note CM Note Notes: Pt medically stable for d/c, no CM d/c needs identified. Pt to work with financial counseling. Date Signed: 10/29/2017 01:46 PM Electronically Signed By:YURIDIA Buchanan
== END 2017-10-29 12:00 | disposition home or self-care (01) ==
LOC: F3N 10-27 02:06
PROVIDERS: ADMIT Student in an Organized Health Care Education/Training Program; ATTEND Student in an Organized Health Care Education/Training Program
PROC: 0TC78ZZ Extirpation of Matter from Left Ureter, Via Natural or Artificial Opening Endoscopic (ICD-10-PCS; principal; 2017-10-27)
PROC: BT171ZZ Fluoroscopy of Left Ureter using Low Osmolar Contrast (ICD-10-PCS; 2017-10-27)
PROC: 0TF78ZZ Fragmentation in Left Ureter, Via Natural or Artificial Opening Endoscopic (ICD-10-PCS; 2017-10-27)
DX: R11.2 Nausea with vomiting, unspecified (principal); N20.1 Calculus of ureter; N39.0 Urinary tract infection, site not specified; E86.0 Dehydration; R10.32 Left lower quadrant pain; I10 Essential (primary) hypertension; K57.30 Diverticulosis of large intestine without perforation or abscess without bleeding; E27.9 Disorder of adrenal gland, unspecified; R91.1 Solitary pulmonary nodule; E11.9 Type 2 diabetes mellitus without complications; E03.9 Hypothyroidism, unspecified; E66.9 Obesity, unspecified; M43.06 Spondylolysis, lumbar region; E78.5 Hyperlipidemia, unspecified; Z87.891 Personal history of nicotine dependence; Z82.49 Family history of ischemic heart disease and other diseases of the circulatory system
CPT/HCPCS: 80305; 82365-90; 82947-QW; 96374; C1758; G0378; J0696; J1100; J1170; J1650; J1815; J1885; J2001; J2060; J2250; J2270; J2405; J2550; J2704; J3010; Q9967